=== PATIENT | female | born 1985 | race Caucasian/White ===

== ENCOUNTER 2016-12-11 20:45 | Emergency (ER) | payer OTHER ==
[2016-12-11 20:13] LABS: INFLUENZA A NEG (NEG); INFLUENZA B NEG (NEG)
[~2016-12-11 20:45] MED LIST: ALBUTEROL17 GM INH; DICLEGIS DR 101 EACH PO; LORTAB 10-5001 EACH PO; LORTAB 5/500 TA1 TA2; MACROBID100 M1 PO; NO MEDICATIONS; PREDNISOLONE5 MG; PREDNISONE PO; PRENATAL1 TA1 PO; PROMETHAZINE HC25 MG PO; TESSALON PERLE100 M1 PO; TYLENOL #3; VALTREX500 MG; VITAMIN B PO; ZANTAC150 MG PO; ZITHROMAX PO; ZITHROMAX1 G/PKT PO
[2016-12-21] MEDS ORDERED: KEFLEX500 M1 (23:25)
[2016-12-24] MEDS ORDERED: Z PACK (00:14)
[2016-12-24] MEDS ORDERED: ZANTAC (00:14)
[2016-12-24] MEDS ORDERED: ALBUTEROL17 GM (00:14)
[2016-12-24] MEDS ORDERED: PRENATAL1 TA1 (00:14)
[2016-12-24] MEDS ORDERED: NEPHROCAPS1 CAP (00:15)
== END 2016-12-11 20:46 | disposition home or self-care (01) ==
LOC: SED 20:45
PROVIDERS: Emergency Medicine
DX: J02.0 Streptococcal pharyngitis (principal); J45.909 Unspecified asthma, uncomplicated; F17.200 Nicotine dependence, unspecified, uncomplicated; Z88.0 Allergy status to penicillin; Z88.8 Allergy status to other drugs, medicaments and biological substances
CPT/HCPCS: 87804; 87880; 99282; 99283

== ENCOUNTER 2016-12-21 23:54 | Emergency (ER) | payer OTHER ==
[~2016-12-21 23:54] MED LIST changes: +KEFLEX500 M1
[2016-12-24] MEDS ORDERED: Z PACK (00:14)
[2016-12-24] MEDS ORDERED: ALBUTEROL17 GM (00:14)
[2016-12-24] MEDS ORDERED: ZANTAC (00:14)
[2016-12-24] MEDS ORDERED: PRENATAL1 TA1 (00:14)
[2016-12-24] MEDS ORDERED: NEPHROCAPS1 CAP (00:15)
== END 2016-12-22 01:17 | disposition home or self-care (01) ==
LOC: SED 23:54
DX: J20.9 Acute bronchitis, unspecified (principal); J02.9 Acute pharyngitis, unspecified; F17.210 Nicotine dependence, cigarettes, uncomplicated; Z88.0 Allergy status to penicillin; Z88.8 Allergy status to other drugs, medicaments and biological substances; Z79.899 Other long term (current) drug therapy
CPT/HCPCS: 99282

== ENCOUNTER 2016-12-24 00:51 | Emergency (ER) | payer OTHER ==
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
[~2016-12-24 00:51] MED LIST changes: +ALBUTEROL17 GM; +NEPHROCAPS1 CAP; +PRENATAL1 TA1; +Z PACK; +ZANTAC
== END 2016-12-24 01:41 | disposition home or self-care (01) ==
LOC: SED 00:51
DX: S60.221A Contusion of right hand, initial encounter (principal); R10.2 Pelvic and perineal pain; F17.200 Nicotine dependence, unspecified, uncomplicated; Z88.0 Allergy status to penicillin; Z88.8 Allergy status to other drugs, medicaments and biological substances; X58.XXXA Exposure to other specified factors, initial encounter; Y92.410 Unspecified street and highway as the place of occurrence of the external cause
CPT/HCPCS: 73130; 99283

== ENCOUNTER 2017-01-09 16:35 | Emergency (ER) | payer OTHER | END 2017-01-09 18:28 | disposition home or self-care (01) | LOC: SED 16:35 | DX: O99.512 Diseases of the respiratory system complicating pregnancy, second trimester (principal); J45.901 Unspecified asthma with (acute) exacerbation; Z87.891 Personal history of nicotine dependence | CPT/HCPCS: 94640; 99283 ==

== ENCOUNTER 2017-06-14 19:01 | Emergency (ER) | payer OTHER ==
[~2017-06-14] VITALS: Ht 165.1 cm; Wt 107.5 kg
== END 2017-06-14 21:04 | disposition home or self-care (01) ==
LOC: SED 19:01
DX: J06.9 Acute upper respiratory infection, unspecified (principal); Z88.0 Allergy status to penicillin; Z88.8 Allergy status to other drugs, medicaments and biological substances; F17.210 Nicotine dependence, cigarettes, uncomplicated
CPT/HCPCS: 99284